=== PATIENT | female | born 1990 | race Caucasian/White ===

== ENCOUNTER 2019-05-14 22:27 | Emergency (ER) | payer OTHER ==
[~2019-05-14] VITALS: Ht 170.2 cm; Wt 102.1 kg
[2019-05-14 22:36] VITALS: BP 116/68
--- NOTE | 2019-05-14 22:40 | NUR ---
PT AMBULATED TO BED 5.
--- NOTE | 2019-05-14 22:50 | NUR ---
PT CAME TO ER C/O OF BURN TO LEFT HAND. PER PT SHE WAS COOKING AND SPILLED HOT OIL AROUND 1930. PAIN LEVEL 10/10, BURNING, THROBBING. PT HAS BLISTERING TO LEFT HAND WITH REDNESS NOTED. PT IS CURRENTLY SOAKING HAND IN ICE BASIN. NKA. NO MED HX. SAFETY MEASURES IN PLACE. ERMD AT BEDSIDE.
--- NOTE | 2019-05-14 22:50 | NUR ---
Note undone in EDM - 05/14/19 at 2256 by [email or web address] PT CAME TO ER C/O OF BURN TO RIGHT HAND. PER PT SHE WAS COOKING AND SPILLED HOT OIL AROUND 1930. PAIN LEVEL 10/10, BURNING, THROBBING. PT HAS BLISTER ON RIGHT FIRST FINGER, WITH REDNESS NOTED. PT IS CURRENTLY SOAKING HAND IN ICE BASIN. NKA. NO MED HX. SAFETY MEASURES IN PLACE. ERMD AT BEDSIDE.
[2019-05-14] MEDS ORDERED: KETOROLAC 60 MG/2 ML VIAL IM ONE (23:00)
--- NOTE | 2019-05-14 23:18 | NUR ---
PT AMBULATED TO RESTROOM
[2019-05-14] MEDS ORDERED: NEOMYCIN/POLYMYXIN/BACITRACIN 0.9 GM/1 PKT TP ONE ×2 (23:45→23:57)
--- NOTE | 2019-05-14 23:45 | NUR ---
EMT AT BEDSIDE APPLYING NEOSPORIN AND JANIA WRAP TO FINGERS.
--- NOTE | 2019-05-14 23:54 | NUR ---
Patient discharged with v/s stable. Written and verbal after care instructions given and explained. Pt instructed to wash hands before dressing changes and to elevate hand. Patient alert, oriented and verbalized understanding of instructions. Ambulatory with steady gait. All questions addressed prior to discharge. ID band removed. Patient advised to follow up with PMD. Rx of mOTRIN AND SILVADENE WAS given. Patient educated on indication of medication including possible reaction and side effects. Opportunity to ask questions provided and answered.
[2019-05-14 23:55] VITALS: BP 116/68
== END 2019-05-14 23:54 | disposition home or self-care (01) ==
LOC: MED 22:27
DX: T23.202A Burn of second degree of left hand, unspecified site, initial encounter (principal); X10.2XXA Contact with fats and cooking oils, initial encounter; Y93.G3 Activity, cooking and baking; Y92.89 Other specified places as the place of occurrence of the external cause; Y99.8 Other external cause status
CPT/HCPCS: 81025; 96372; 99284; J1885; 99283